=== PATIENT | male | born 1960 | race Hispanic/Latino ===

== ENCOUNTER 2016-12-24 06:08 | Day surgery (SDC) | payer OTHER ==
[2016-12-24 06:27] VITALS: RESP 18
--- NOTE | 2016-12-24 06:55 | ED PDOC ---
Upper Extremity Pain/Injury Time Seen by Provider: 12/24/16 06:25 Chief Complaint (Nursing): Upper Extremity Problem/Injury Chief Complaint (Provider): Upper Extremity Problem History Per: Patient History/Exam Limitations: no limitations Onset/Duration Of Symptoms: Gradual (for months) Current Symptoms Are (Timing): Constant Exacerbating Factor(s): Worse At Night Additional Complaint(s): 56 year old male presents to ED with complaints of right shoulder pain x several months and has a past medical history of hypercholesterolemia, pre-DM, and GERD. 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 Notes difficulty raising right arm above head. Notes pain is worse at night because he moves around while he sleeps as well as occasional numbness to the anterior portion of right shoulder radiating down to fingers. PCP: Dr. Parmar Past Medical History Reviewed: Historical Data, Nursing Documentation, Vital Signs Vital Signs: Last Vital Signs Temp 97.7 F 12/24/16 06:21 Pulse 70 12/24/16 06:21 Resp 18 12/24/16 06:21 BP 138/89 12/24/16 06:21 Pulse Ox 98 12/24/16 06:21 - Medical History PMH: Diabetes (pre-DM), Gastritis, Hypercholesterolemia Denies: Chronic Kidney Disease - Surgical History Surgical History: Denies: No Surg Hx Other surgeries: arthoscopy, ortho surgeries - Family History Family History: States: Unknown Family Hx - Social History Current smoker - smoking cessation education provided: No Ex-Smoker (has not smoked in the last 12 months): Yes Drugs: Denies - Home Medications Home Medications: Ambulatory Orders Medication Instructions Recorded Atorvastatin [Lipitor] 10 mg PO DAILY 12/24/16 MetFORMIN [glucoPHAGE] 1,000 mg PO DAILY 12/24/16 Omeprazole 20 mg PO DAILY 12/24/16 - Allergies Allergies/Adverse Reactions: Allergies Allergy/AdvReac Type Severity Reaction Status Date / Time No Known Allergies Allergy Verified 12/24/16 06:21 Review of Systems ROS Statement: Except As Marked, All Systems Reviewed And Found Negative Musculoskeletal: Positive for: Shoulder Pain (right shoulder pain) Neurological: Positive for: Numbness (occasional numbness originating from anterior right shoulder radiating to right fingers.) Physical Exam - Reviewed Nursing Documentation Reviewed: Yes Vital Signs Reviewed: Yes - Physical Exam Appears: Positive for: Non-toxic, No Acute Distress Skin: Positive for: Normal Color, Warm, Dry Cardiovascular/Chest: Positive for: Regular Rate, Rhythm. Negative for: Murmur Respiratory: Positive for: Normal Breath Sounds. Negative for: Respiratory Distress Pulses-Radial (L): 2+ Pulses-Radial (R): 2+ Gastrointestinal/Abdominal: Positive for: Normal Exam, Soft. Negative for: Tenderness Extremity: Positive for: Tenderness. Negative for: Normal ROM (unable to raise arm 90 degrees, +bicep/tricep 5/5 strength, 5/5 flexion/extension of wrist, 2+ DP's), Deformity, Swelling Neurologic/Psych: Positive for: Alert, cash clerk II-XII, Oriented. 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 neurovascularly intact) - ECG O2 Sat by Pulse Oximetry: 98 (RA) Pulse Ox Interpretation: Normal Medical Decision Making Medical Decision Makin Initial impression: shoulder strain Initial plan: * T&S * EKG * Labs * PTT/PT * CXR [address] Wang, who will evaluate patient Scribe Attestation: Documented by Abbey Zambrano acting as a scribe for David Segundo MD. Scribe Attestation: All medical record entries made by the Scribe were at my direction and personally dictated by me. I have reviewed the chart and agree that the record accurately reflects my personal performance of the history, physical exam, medical decision making, and the department course for this patient. I have also personally directed, reviewed, and agree with the discharge instructions and disposition. Disposition - Clinical Impression Clinical Impression: Shoulder pain - Disposition Disposition Time: 06:35 Condition: STABLE Forms: [employer] (Citizen [place])
[2016-12-24 07:11] LABS: BASO % 0.3 % (0.0-2.0); EOS # 0.3 K/uL (0.0-0.7); HEMATOCRIT 44.8 % (35.0-51.0); LYMPH % 32.1 % (20.0-40.0); MEAN CELL VOLUME 86.7 fl (80.0-94.0); MEAN CORPUSCULAR HEMOGLOBIN 29.2 pg (27.0-31.0); MEAN CORPUSCULAR HGB CONC 33.7 g/dL (33.0-37.0); MONO # 0.7 K/uL (0.0-0.8); MONO % 10.8 % (0.0-10.0); NEUT # 3.3 K/uL (1.8-7.0); NEUT % 52.8 % (50.0-75.0); RED CELL DISTRIBUTION WIDTH 13.9 % (11.5-14.5); WHITE BLOOD COUNT 6.3 K/uL (4.8-10.8)
[2016-12-24 07:22] LABS: BLOOD UREA NITROGEN 16 mg/dl (9-20); CALCIUM 9.3 mg/dL (8.4-10.2); CARBON DIOXIDE 25 mmol/L (22-30); CHLORIDE 105 mmol/L (98-107); GFR AFRICAN-AMERICAN > 60; GLUCOSE,RANDOM 146 mg/dL (75-110); POTASSIUM 4.3 MMOL/L (3.6-5.0); SODIUM 139 mmol/l (132-148)
[2016-12-24 07:49] LABS: PARTIAL THROMBOPLASTIN TIME 34.5 Seconds (25.6-37.1)
--- NOTE | 2016-12-24 08:02 | CARD ---
APPROVED REPORT EKG Measurement Heart [id number] <Conclusion> Normal sinus rhythm Low voltage QRS Poor R-wave progression V2 to V3 Borderline ECG
--- NOTE | 2016-12-24 08:34 | RAD ---
HISTORY: Shoulder pain. Technique: Single view portable upright @ 18:50 COMPARISON: No prior. FINDINGS: LUNGS: No active pulmonary disease. PLEURA: No significant pleural effusion identified, no pneumothorax apparent. CARDIOVASCULAR: No radiographic findings to suggest acute or significant cardiovascular disease. OSSEOUS STRUCTURES: No significant abnormalities. VISUALIZED UPPER ABDOMEN: Normal. OTHER FINDINGS: None. IMPRESSION: No active disease.
[2016-12-24] MEDS ORDERED: Lidocaine 1% Inj (20ml) ONE (08:56)
[2016-12-24] MEDS ORDERED: Bacitracin Ointment 30 GM TUBE ONE (08:57)
[2016-12-24] MEDS ORDERED: Midazolam 2 MG/2 ML VIAL ONE (09:42)
[2016-12-24] MEDS ORDERED: Neostigmine Methylsulfate 2 MG/2 ML ML IV ONE (09:42)
[2016-12-24] MEDS ORDERED: Propofol 10 mg/ml Inj (20 ML) ONE (09:42)
[2016-12-24] MEDS ORDERED: Succinylcholine 200 mg/10 ml Inj IV ONE (09:42)
[2016-12-24] MEDS ORDERED: Lidocaine 4% (Laryng-O-Jet) Kit MM ONE (09:42)
[2016-12-24] MEDS ORDERED: Rocuronium 10 mg/ml (5 ml) ONE ×2 (09:46→11:35)
[2016-12-24] MEDS ORDERED: Lactated Ringer's 1,000 ML IV ONE (10:15)
[2016-12-24] MEDS ORDERED: Phenylephrine 10 mg/ml Inj ONE (10:22)
[2016-12-24] MEDS ORDERED: SODIUM CHLORIDE IV ONE (10:40)
[2016-12-24] MEDS ORDERED: EPINEPHRINE IV ONE (10:40)
[2016-12-24] MEDS ORDERED: Bupivacaine HCl/Epi 0.5% 1:20000 30 ML SOL IJ ONE (12:28)
[2016-12-24] MEDS ORDERED: Bupivacaine HCl 0.25% PF (30 ml) Inj ONE (12:28)
--- NOTE | 2016-12-24 12:43 | PCM.SURG1 ---
Surgeon's Initial Post Op Note - Surgeon's Notes Surgeon: Kathleen Salvage Mechanic: RONDA Valdes Type of Anesthesia: General Endo, Block Regional Anesthesia Administered By: DR Stuart Pre-Operative Diagnosis: labral tear R shoulder. internal derangem,ent R shoulder Operative Findings: as above. synovits/adhesions subacromial space. A/C joint arthropathy Post-Operative Diagnosis: as above Operation Performed: Arthroscopic Labral repair. arthroscopic intraarticular biceps tenodesis. arthoscopic partial distal claviculectomy. arthroscopic busectomy and lysis of adhesions subacromial space Specimen/Specimens Removed: cartilage/synvoium/bone Estimated Blood Loss: EBL {In ML}: 5 Blood Products Given: N/A Drains Used: No Drains Post-Op Condition: Good Date of Surgery/Procedure: 12/24/16 Time of Surgery/Procedure: 11:30 (time in room 10:15)
[2016-12-24] MEDS ORDERED: HYDROmorphone 0.5 mg/0.5 ml ISec IVP PRN (13:13)
[2016-12-24] MEDS ORDERED: Lactated Ringer's 1,000 ML IV SCH (13:13)
--- NOTE | 2016-12-24 13:20 | PCM.ANESB1 ---
Interscalene Block - Brachial Plexus Date of Procedure: 12/24/16 Anesthesiologist: Dr. Stuart Pre-Procedure Diagnosis: S/P right shoulder arthroscopy Post-Procedure Diagnosis: S/P right shoulder arthroscopy Procedure Performed: Interscalene Block of Brachial Plexus Right - Procedure Interscalene Block of Brachial Plexus: This procedure was explained to the patient that it is for post-operative pain management. Consent was obtained after a thorough discussion with the patient regarding the benefits and possible complications of local anesthetic block of the Brachial Plexus at the Interscalene area. The patient was brought to the Operating Room and standard monitors were applied. Time out was held with the circulating nurse to confirm the correct side and appropriate block. After the surgery while still under general anesthesia, the patient's head was gently rotated away from the right operative shoulder and the anterior scalene groove was carefully palpated. The ultrasound transducer was then applied to the skin in the transverse plane and the brachial plexus was visualized lateral to the carotid artery and in between the anterior and middle scalene muscles. After identification,the anterior lateral portion of the neck was prepped with chloraprep solution. At this point, a # 22 gauge Stimuplex 2 inches insulated needle was inserted into the interscalene groove and directed in a caudal and midline direction. The needle was inserted lateral to the ultrasound transducer in-plane towards the brachial plexus in a [id number] direction. Needle advancement was performed carefully under direct ultrasound visualization. Nerve stimulator was used and twitched of the affected extremity including the hand brachialis muscles, biceps and the deltoid was obtained at a current of 0.3MA. After repeated negative aspiration, 5cc of 0.375% Bupivacaine with 1:200,000 epinephrine was injected and this was followed with 25cc of 0.375% Bupivacaine with 1:200,000 epinephrine. Under ultrasound guidance the local anesthetics were observed surrounding the roots of the brachial plexus. The needle was removed intact and sterile dressing was applied. The patient had stable vital signs, anesthesia stopped and was awaken/extubated. The patient tolerated the interscalene block of the bracheal plexus well with stable vital signs and was subsequently transported to PACU.
[2016-12-24 14:20] VITALS: O2SAT 98
[2016-12-24 15:40] VITALS: BP 110/70; PULSE 62; TEMP 98
--- NOTE | 2016-12-26 20:06 | OP ---
PROCEDURE DATE: 12/24/2016 PREOPERATIVE DIAGNOSIS: Internal derangement of the right shoulder, painful right shoulder. POSTOPERATIVE DIAGNOSES: 1. Labral tear, right shoulder, extending anterior to posterior to the root of the biceps tendon. 2. Avulsion of the biceps tendon complex. 3. Acromioclavicular joint arthropathy. 4. Subacromial impingement. 5. Excision of bursa in the subacromial space and arthroscopic lysis of adhesions. SURGEON: Dr. Wang. BRIDGE ENGINEER: Kelsi Alicea, certified registered nursing primary teaching assistant. TYPE OF ANESTHESIA: General and regional anesthesia. ANESTHESIA ADMINISTERED BY: Dr. Stuart. COMPLICATIONS: No complications. DRAINS: No drains. OPERATIVE INDICATION AND DESCRIPTION: He is a patient well-known to my practice, who has had bilateral shoulder pain, most particularly right shoulder pain over a long period of time. The patient has failed conservative management including intraarticular injection, activity modification and therapy. Pros, cons, risks and benefits of surgical approach were discussed. The possibility of mechanical failure, infection, thromboembolic disease, conversion to secondary open procedure was discussed, possibility of nerve injury, recurrence of pain was discussed. After we thoroughly discussed the pros, cons, risks, and benefits after having obtained informed consent in the above fashion, the patient identified as Saeid Gerard in the modified Davis chair position, the right upper extremity was prepped and free draped in the usual fashion for upper extremity surgery. All bony prominences were well padded. The upper extremity positioner was employed. After sterilely prepping and draping, after having obtained informed consent, after having identified side, site and procedure, a critical pause/time-out, after the satisfactory induction of the anesthetic, the patient identified as Saeid Gerard. The topographic anatomy of the shoulder was marked, the spine of the scapula and the lateral aspect of the acromion and coracoid process. The joint was insufflated with 10 mL of 1% lidocaine without epinephrine. A #11 blade was used and posterolateral portal was accomplished one fingerbreadth inferior to lateral aspect of the acromion, one fingerbreadth medially. The arthroscope was introduced, examination of the joint commenced. Triangulation was accomplished using a #18-gauge spinal needle followed by #11 blade, followed by spreading, followed by introduction of blunt trocar. With the arthroscope posteriorly, the Wissinger mickie was placed anteriorly and the cannula was placed anteriorly. With the arthroscope posteriorly, the joint was entered, there was found to be a displaced tear of the glenoid and labrum, again please refer to the video photographs, extending from the anterior aspect, posteriorly to the root of the biceps tendon. With the arthroscope posteriorly, a posterolateral portal was accomplished lateral to the initial posterior portal using #18-gauge spinal needle followed by #11 blade, followed by spreading. With the arthroscope posteriorly, lasso was placed around the glenoid and labral tear after the anterior glenoid and labrum had been prepared using a 3.4 mm [employer] suction punch and the rasp. This having been accomplished, the nitinol wire was brought up posterolaterally; fiber blade was loaded, brought out anteriorly. This having been accomplished, drilling was accomplished at the 1 o'clock position. The PushLock Ty Ty was loaded, it was impacted and the repair was tensioned. This having been accomplished with the arthroscope posteriorly, attention was then now turned to the biceps tendon. Using the lasso at the base of the biceps tendon complex, the separation was grasped through the route of the biceps tendon, the nitinol wire was brought out anteriorly. The nitinol wire was brought out posterolaterally. The fiber blade was loaded and it was again brought out anteriorly. Both blades were brought out anteriorly, drilling was accomplished, PushLock Ty Ty was loaded, and the biceps intraarticular tenodesis was thus accomplished. This having been accomplished, a third Ty Ty was placed at the 3 o'clock position in this extensive type 2 SLAP lesion with the separation of the glenoid labrum and biceps tendon avulsion. This having been accomplished, the wound was thoroughly irrigated and attention was turned to the subacromial space. The arm was placed in dependency, a portal was placed mid laterally in the so-called portal . Using #18-gauge spinal needle followed by #11 blade, followed by spreading with the arthroscope posterolaterally, with the arthroscope posteriorly, extensive debridement and bursectomy of the subacromial space was accomplished. There was an extensive bursa and adhesions in the subacromial space. With the arthroscope posteriorly using the [employer] Serfas wand, the subacromial space was carefully debrided using a combination of the arthroscopic shaver and the wand. This having been accomplished with the arthroscope posteriorly, extensive debridement of the subacromial space completed. Bleeding points were controlled with the Nahma Serfas wand. This having been accomplished, there was found to be no gross tear of the rotator cuff, but there was found to be evidence of subacromial impingement and rotator cuff tendinosis with evidence of AC joint arthropathy and arthritis with spurring. With the arthroscope posterolaterally, a partial acromioplasty was accomplished using arthroscopic bur. This having been accomplished with the arthroscopic bur, a partial distal claviculectomy was accomplished as well to include the distal 1 cm of the clavicle and to include the articular surface. The arthroscope was removed then laterally and the bur was placed anteriorly and again, the partial distal claviculectomy was accomplished using the arthroscopic bur to include the distal 1 cm of the clavicle and articular surface. With the arthroscope being laterally, arthroscopic partial distal claviculectomy was accomplished. With the arthroscope being laterally, partial acromioplasty was completed; again, lysis of adhesions of the subacromial space was completed. Bleeding points were controlled with the Annemarie Serfas wand. The wound was thoroughly irrigated, labral repair having been accomplished, biceps tenodesis, intraarticular having been accomplished, partial acromioplasty, partial distal claviculectomy and debridement of lysis of adhesions of the subacromial space. Closure was in layers with interrupted Vicryl and nylon. Compression dressing, shoulder immobilizers applied. Blaine Wang MD
== END 2016-12-24 15:30 | disposition home or self-care (01) ==
LOC: H.ER 06:08 → H.SDS 06:35
PROVIDERS: ATTEND Orthopaedic Surgery
DX: M24.811 Other specific joint derangements of right shoulder, not elsewhere classified (principal); M25.511 Pain in right shoulder; E11.9 Type 2 diabetes mellitus without complications; E78.5 Hyperlipidemia, unspecified; M54.9 Dorsalgia, unspecified; E66.3 Overweight; M75.41 Impingement syndrome of right shoulder
CPT/HCPCS: 29824; 29825; 29828; 71010; 80048; 85025; 85610; 85730; 86850; 86900; 93005; 99283; J0171; J0330; J0690; J2001; J2250; J2370; J2704; J2710; J2765; J3010; J7030; J7120